=== PATIENT | female | born 1940 | race Caucasian/White ===

== ENCOUNTER 2017-01-12 02:12 | Observation (INO) | payer MEDICARE, OTHER ==
[2017-01-12] VITALS (10 sets, daily range): BP systolic 105–132; BP diastolic 51–59; PULSE 57–95; RESP 16–18; TEMP 97.5–98.2; O2SAT 96–99
[~2017-01-12] VITALS: Ht 157.5 cm; Wt 89.0 kg
[~2017-01-12 02:12] MED LIST: ALPR.25; ASPI81TA82 PO; CITA40; CORE12.5 OR; DULERA INH; GABA100C4 PO; IRBE150T4 PO; LEVO137T4 PO; PLAV75TA OR; PRAV40TA2 OR; RANO500 OR; RISE30 PO; VENTAER INH
[2017-01-12] MEDS ORDERED: AMLO5TAB2 PO (02:58)
[2017-01-12] MEDS ORDERED: CLOP75TA PO (02:58)
[2017-01-12] MEDS ORDERED: OMEP40CA2 PO (02:58)
[2017-01-12] MEDS ORDERED: SERT-129 PO (02:58)
[2017-01-12] MEDS ORDERED: LEVO125T4 PO (02:58)
[2017-01-12] MEDS ORDERED: ATOR40TA16 PO (02:58)
[2017-01-12] MEDS ORDERED: CARV6.252 PO (02:58)
[2017-01-12] MEDS ORDERED: CARV12.52 PO (02:58)
[2017-01-12] MEDS ORDERED: METF500T PO (02:58)
[2017-01-12] MEDS ORDERED: IRBE150T15 PO (02:58)
[2017-01-12] MEDS ORDERED: ASPIRIN 81 MG CHEW TAB PO ONE (03:15)
[2017-01-12] MEDS ORDERED: NITROGLYCERIN 2% OINT 1 GM PACKET TOP ONE (03:15)
[2017-01-12] MEDS ORDERED: SODIUM CHLORIDE 0.9% FLUSH 10 ML FLUSH IVF PRN (03:15)
[2017-01-12 03:34] LABS: AUTOMATED NEUTROPHIL # 4.9 TH/MM3 (1.8-7.7); BASOPHIL # 0.1 TH/MM3 (0-0.2); BASOPHIL % 0.9 % (0.0-2.0); EOSINOPHIL # 0.5 TH/MM3 (0-0.4); EOSINOPHIL % 6.7 % (0.0-4.0); HEMO FLAGS DIFF FINAL; LYMPH % 16.5 % (9.0-44.0); LYMPHOCYTE # 1.2 TH/MM3 (1.0-4.8); MEAN CORPUSCULAR HEMOGLOBIN 27.3 PG (27.0-34.0); MEAN CORPUSCULAR HGB CONC 33.7 % (32.0-36.0); MONO % 9.3 % (0.0-8.0); NEUT % 66.6 % (16.0-70.0); PLATELET COUNT 255 TH/MM3 (150-450); RED BLOOD COUNT 3.71 MIL/MM3 (4.00-5.30); RED CELL DISTRIBUTION WIDTH 17.3 % (11.6-17.2); WHITE BLOOD COUNT 7.4 TH/MM3 (4.0-11.0)
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
[2017-01-12 03:43] LABS: APTT (PATIENT) 25.5 SEC (24.3-30.1); PROTHROMBIN TIME - PATIENT 11.1 SEC (9.8-11.6)
[2017-01-12 03:53] LABS: ALT (GPT) 14 U/L (10-53); ANION GAP 5 MEQ/L (5-15); AST (GOT) 12 U/L (15-37); BICARBONATE 28.1 MEQ/L (21.0-32.0); BLOOD UREA NITROGEN 26 MG/DL (7-18); CHLORIDE 108 MEQ/L (98-107); GLOMERULAR FILTRATION RATE 30 ML/MIN (>89); MAGNESIUM 1.7 MG/DL (1.5-2.5); POTASSIUM 4.3 MEQ/L (3.5-5.1); SODIUM (NA) 141 MEQ/L (136-145)
[2017-01-12 03:57] LABS: ALKALINE PHOSPHATASE 71 U/L (45-117); TOTAL BILIRUBIN ADULT 0.3 MG/DL (0.2-1.0)
[2017-01-12] MEDS ORDERED: ONDANSETRON HCL 4 MG/2 ML VIAL IV PUSH ONE (04:00)
[2017-01-12] MEDS ORDERED: HYDROmorphone HCL PF 1 MG/ML VIAL IV PUSH ONE (04:00)
--- NOTE | 2017-01-12 04:00 | RADRPT ---
EXAM DATE/TIME: 01/12/2017 03:30 [facility] COMPARISON: No previous studies available for comparison. INDICATIONS : Chest pain to medial chest. Cough for 1 week. MEDICAL HISTORY : None. SURGICAL HISTORY : CABG. ENCOUNTER: Initial ACUITY: 1 day PAIN SCORE: 0/10 LOCATION: Bilateral chest FINDINGS: A single view of the chest demonstrates the lungs to be symmetrically aerated without evidence of mas s, infiltrate or effusion. Minimal basilar atelectasis. Postoperative median sternotomy. Cardiomegaly . CONCLUSION: 1. No focal consolidation. Postop median sternotomy. Minimal bibasilar atelectasis. Duglas Rao MD on January 12, 2017 at 3:56 Board Certified Radiologist. This report was verified electronically.
[2017-01-12 04:02] LABS: CREATINE KINASE 39 U/L (26-192)
[2017-01-12] MEDS ORDERED: SODIUM CHLOR 0.9% 250 ML INJ 250 ML IV ONE (04:45)
[2017-01-12] MEDS ORDERED: NITROGLYCERIN 0.4 MG SL 25 TABS/BTL SL PRN (04:45)
[2017-01-12] MEDS ORDERED: ACETAMINOPHEN/HYDROcodone 325 MG/5 MG TAB PO ONE (04:45)
--- NOTE | 2017-01-12 04:45 | RADRPT ---
EXAM DATE/TIME: 01/12/2017 04:20 [facility] COMPARISON: No previous studies available for comparison. INDICATIONS : Upper abdominal pain. ORAL CONTRAST: No oral contrast ingested. RADIATION DOSE: 24.71 CTDIvol (mGy) ; Patient body habitus MEDICAL HISTORY : Cardiovascular disease. Hypertension. Chronic obstructive pulmonary disease.Diabetes Breast cancer SURGICAL HISTORY : CABG Cholecystectomy.Hysterectomy. ENCOUNTER: Initial ACUITY: 1 day PAIN SCALE: 8/10 LOCATION: lower chest upper abdomen TECHNIQUE: Volumetric scanning of the abdomen and pelvis was performed. Using automated exposure control and ad justment of the mA and/or kV according to patient size, radiation dose was kept as low as reasonably achievable to obtain optimal diagnostic quality images. DICOM format image data is available electro nically for review and comparison. FINDINGS: Lung bases are clear. Dense mitral annular calcifications. No acute findings in the liver, spleen, ad renals or pancreas. Vascular calcifications in both kidneys. No hydronephrosis. Previous cholecystectomy. No free fluid or free air. No bowel obstruction. CONCLUSION: 1. No acute findings within the abdomen and pelvis. Previous cholecystectomy. 2. Previous kyphoplasty L3 and L2 with mild residual compression deformity. Duglas Rao MD on January 12, 2017 at 4:41 Board Certified Radiologist. This report was verified electronically.
[2017-01-12] MEDS ORDERED: PANTOPRAZOLE SODIUM 40 MG VIAL IV PUSH ONE (05:00)
[2017-01-12] MEDS ORDERED: ACETAMINOPHEN/HYDROcodone 325 MG/7.5 MG TAB PO PRN (07:00)
[2017-01-12] MEDS ORDERED: SODIUM CHLORIDE 0.9% FLUSH 10 ML FLUSH IV FLUSH PRN (07:00)
[2017-01-12] MEDS ORDERED: ONDANSETRON HCL 4 MG/2 ML VIAL IV PUSH PRN (07:00)
[2017-01-12 07:47] LABS: CREATINE KINASE 33 U/L (26-192)
[2017-01-12] MEDS ORDERED: GLUCAGON 1 MG/ML VIAL IM/SQ PRN (08:45)
[2017-01-12] MEDS ORDERED: DEXTROSE 50% IN WATER 50 ML VIAL(D50) IV PRN (08:45)
[2017-01-12] MEDS ORDERED: LEVOTHYROXINE SODIUM 125 MCG TAB PO SCH (08:46)
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
[2017-01-12] MEDS ORDERED: PANTOPRAZOLE SOD 40 MG DELAYED RELEASE TAB PO SCH (09:00)
[2017-01-12] MEDS ORDERED: amLODIPine BESYLATE 5 MG TAB PO SCH (09:00)
[2017-01-12] MEDS ORDERED: CARVEDILOL 6.25 MG TAB PO SCH (09:00)
[2017-01-12] MEDS ORDERED: SODIUM CHLORIDE 0.9% FLUSH 10 ML FLUSH IV FLUSH SCH (09:00)
[2017-01-12] MEDS ORDERED: SERTRALINE HCL 100 MG TAB PO SCH (09:00)
[2017-01-12] MEDS ORDERED: CLOPIDOGREL 75 MG TAB PO SCH (09:00)
[2017-01-12] MEDS ORDERED: LOSARTAN 50 MG TAB PO SCH (09:00)
--- NOTE | 2017-01-12 09:54 | EKG ---
Date Performed: 01/12/2017 Time Performed: 02:20:52 PTAGE: 76 years EKG: Sinus rhythm MODERATE ST DEPRESSION ABNORMAL ECG Since PREVIOUS TRACING , no significant change noted PREVIOUS TRACIN07/23/2012 00.16 DOCTOR: Carmel Castillo Interpretating Date/Time 01/12/2017 09:54:17
--- NOTE | 2017-01-12 09:55 | EKG ---
Date Performed: 01/12/2017 Time Performed: 07:02:57 PTAGE: 76 years EKG: SINUS BRADYCARDIA MODERATE ST DEPRESSION ABNORMAL ECG Since PREVIOUS TRACING , no significant change noted DOCTOR: Carmel Castillo Interpretating Date/Time 01/12/2017 09:54:47
[2017-01-12 10:57] LABS: CREATINE KINASE 33 U/L (26-192)
[2017-01-12] MEDS ORDERED: INSULIN ASPART SUPPLEMENTAL SCALE SQ SCH (11:00)
--- NOTE | 2017-01-12 15:02 | EKG ---
Date Performed: 01/12/2017 Time Performed: 09:44:25 PTAGE: 76 years EKG: SINUS BRADYCARDIA WITH FIRST DEGREE AV BLOCK ABNORMAL ECG \spt PREVIOUS TRACING : 01/12/2017 07.02 DOCTOR: Carmel Castillo Interpretating Date/Time 01/12/2017 15:02:12
[2017-01-12 17:04] LABS: BLOOD, URINE NEG (NEG); COMMENT (UR) CULTURE INDICATED; CULTURE IF INDICATED CULTURE INDICATED; GLUCOSE,URINE NEG (NEG); KETONE, URINE NEG (NEG); MUCUS URINE FEW /lpf (OCC); NITRITE,URINE NEG (NEG); PH, URINE 5.5 (5.0-8.5); SQUAMOUS EPITHELIAL CELL URINE 1 /hpf (0-5); TRANSITIONAL EPI CELLS, URINE 1 /hpf; URINE COLOR YELLOW (YELLW/STRAW)
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
[2017-01-12] MEDS ORDERED: CEFU1TAB20 PO (17:16)
[2017-01-12] MEDS ORDERED: LACTCHW3 CHEW (17:17)
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
[2017-01-12] MEDS ORDERED: ATORVASTATIN 40 MG TAB PO SCH (21:00)
== END 2017-01-12 20:17 | disposition home or self-care (01) ==
LOC: NEPE 02:12 → NEDA 04:58 → NEPHCDU 08:29
PROVIDERS: ADMIT Hospitalist; ATTEND Hospitalist
DX: R07.89 Other chest pain (principal); I25.10 Atherosclerotic heart disease of native coronary artery without angina pectoris; I48.0 Paroxysmal atrial fibrillation; I10 Essential (primary) hypertension; I25.2 Old myocardial infarction; E11.9 Type 2 diabetes mellitus without complications; N39.0 Urinary tract infection, site not specified; R94.31 Abnormal electrocardiogram [ECG] [EKG]; E78.5 Hyperlipidemia, unspecified; Z79.84 Long term (current) use of oral hypoglycemic drugs
CPT/HCPCS: 71010; 74176; 80053; 81001; 82550; 82948; 83690; 83735; 83880; 84484; 85025; 85610; 85730; 87086; 93005; 96361; 96374; 96375; 99285; C9113; G0378; J1170; J2405; J7050